=== PATIENT | male | born 1930 | race Caucasian/White ===

== ENCOUNTER 2018-02-05 08:30 | Observation (INO) | payer OTHER ==
--- NOTE | 2018-02-05 08:45 | EDPHY ---
H & P Stated Complaint: SOB Time Seen by Provider: 02/05/18 08:44 - Medical/Surgical History Hx Asthma: Yes Hx Chronic Respiratory Disease: No Hx Diabetes: No Hx Cardiac Disease: Yes Hx Renal Disease: No Hx Cirrhosis: No Hx Alcoholism: No Other PMH: a-fib, asthma, - Social History Smoking Status: Former smoker Constitutional: Initial Vital Signs Temperature (C) 36.7 C 02/05/18 08:33 Heart Rate 133 H 02/05/18 08:33 Respiratory Rate 24 H 02/05/18 08:33 Blood Pressure 156/105 H 02/05/18 08:33 O2 Sat (%) 91 L 02/05/18 08:33 O2 Delivery Mode Nasal Cannula O2 (L/minute) 2 Allergies/Adverse Reactions: No Known Allergies Allergy (Verified 02/05/18 08:32) Home Medications: Medication Instructions Recorded Diazepam [Valium 2 MG (*)] 2 mg PO BID PRN #7 tab 01/01/18 Diltiazem 01/01/18 Dulera 200 Mcg/5 Mcg Inhaler 01/01/18 Pradaxa 01/01/18 Proair Hfa 02/05/18 Medical Decision Making - Diagnostics Imaging Results: Imaging Impressions Chest X-Ray 02/05/18 08:43 Impression: 1. No active cardiopulmonary disease seen. 2. Possible hiatal hernia. Chest/Thorax CTA 02/05/18 09:22 Impression: 1. No evidence of pulmonary embolus using CT protocol. 2. Focal band of scarring left lower lobe posterior laterally and inferior right upper lobe anterolaterally. 3. Tortuosity of the descending thoracic aorta with scattered arterial sclerotic calcifications. Arteriosclerotic vascular calcifications are also seen of the proximal to mid LAD. 4. Small hiatal hernia. 5. Hyperexpanded lungs suggestive of underlying COPD. Findings discussed with Dakota Nguyen MD at 10:51 hour, 02/05/2018. Imaging: Discussed imaging studies w/ on call Radiologist, I viewed and interpreted images myself ED Course/Re-evaluation: CHIEF COMPLAINT: Shortness of breath HISTORY OF PRESENT ILLNESS: The patient is an anticoagulated (Pradaxa) 87 y/o male with a history of atrial- fibrillation and COPD complaining of shortness of breath. Several months ago the patient developed a chest cold and has continued to have a cough and some shortness of breath since. He has also had more frequent episode of atrial- fibrillation since the chest cold began. He is scheduled to see a electric detector operator next week regarding this cough. [place] and became acutely short of breath. As the shortness of breath has not improved, the patient decided to present to the emergency department today. Denies headache, neck pain, abdominal pain, urinary or bowel complaints, numbness, paresthesias, fever. REVIEW OF SYSTEMS: A comprehensive 10 system review of systems is otherwise negative aside from the elements mentioned in the history of present illness and medical decision making. PHYSICAL EXAM: HR, BP, O2 Sat, RR. Temp noted General Appearance: Alert, well hydrated, appropriate. Head: Atraumatic without scalp tenderness or obvious injury Eyes: Pupils equal, round, reactive to light and accommodation, EOMI, no trauma , no injection. Ears: Clear bilaterally, no perforation, normal landmarks Nose: Atraumatic, no rhinorrhea, clear. Throat: There is no erythema or exudates, no lesions, normal tonsils, mucus membranes moist. Neck: Supple, nontender, no lymphadenopathy. Respiratory: Tachypneic with retractions, accessory muscle use, and distress. Diffuse bilateral end expiratory wheezes with decreased breath sounds in the bases, left greater than right. Cardiovascular: Regular rate and rhythm, no murmurs, rubs, or gallops. Bilateral carotid, radial, dorsalis pedis, and posterior tibial pulses intact. Good capillary refill all extremities. Gastrointestinal: Abdomen is soft, nontender, non-distended, no masses, no rebound, no guarding, no peritoneal signs. Musculoskeletal: Normal active ROM of all extremities, atraumatic. Neurological: Alert, appropriate, and interactive. The patient has normal DTRs and non-focal cranial nerves, motor, sensory, and cerebellar exam. Skin: No rashes, good turgor, no nodules on palpation. Past medical history: Atrial-fibrillation, asthma, COPD Past surgical history: Denies Family history: Denies Social history: Family at bedside, former smoker, lives in [place] DIAGNOSTICS/PROCEDURES/CRITICAL CARE TIME: EKG: The 12 lead EKG was interpreted by myself as atrial fibrillation with a rapid V-rate, probable old anteroseptal infarct. See hard copy and/or "tracemaster" electronic copy for interpretation. Chest X-ray: No acute findings Chest CTA: No acute findings. No signs of pneumonia or PE. Critical care time spent by me, Dr. Nguyen, exclusively with this patient was 30 minutes, exclusive of PA time and exclusive of procedures. The organ system at risk was cardiopulmonary and I gave IVF, Ceftriaxone and Zithromax, Diltiazem and transferred to the patient to the floor to prevent worsening of the patients condition. DIFFERENTIAL DIAGNOSIS: The differential diagnosis for the patient's shortness of breath and hypoxemia included but was not limited to COPD exacerbation, paroxysmal atrial fibrillation, pneumonia, myocardial infarction, acute mountain sickness, high altitude pulmonary edema, congestive heart failure, and pulmonary embolus. MEDICAL DECISION MAKING: The patient is an anticoagulated (Pradaxa) 87 y/o male with a history of atrial- fibrillation and COPD presenting with shortness of breath, onset yesterday after going to the mountains. On exam the patient is tachypneic with retractions , accessory muscle use, and distress. He has diffuse bilateral end expiratory wheezes with decreased breath sounds in the bases, left greater than right. The patient is also tachycardic. Labs, chest x-ray, and EKG ordered; 20mg IV Diltiazem bolus with 20mg/hr Diltiazem drip, DuoNeb, and 125mg IV Solu-Medrol administered. 0846: I reassessed patient and reviewed patient's EKG which reveals tachycardia in an atrial fibrillation or multiple focal tachycardia. 0855: I reviewed patient's chest x-ray with no obvious sign of pneumonia. 0904: I reassessed patient, he is still tachycardic due to a-fib, not sepsis. Patients troponin is negative and he has a normal ABG. 0913: Patient's labs reveal a WBC with a left shift. 0919: 1gm IV Ceftriaxone, Zithromax drip, and 500mL IV NS administered 0921: Chest CTA ordered; patient' has pre-renal dehydration, 1L IV NS administered. 0933: Reassessed patient and discussed laboratory and x-ray findings. I have discussed having a chest CTA for further evaluation, which he is comfortable with. I have also discussed plan for admission, which he is comfortable with. 1025: Patient's heart rate is between 88-120 and his BP is 95/78; chest CTA still pending. 1052: I spoke with Dr. Krause, radiologist, who reports there are no acute findings on the chest CTA. The patient's labs reveal a BNP of 2,000; 20mg IV Lasix administered for his acute CHF exacerbation. Patient's symptoms are due to paroxysmal atrial fibrillation and a COPD exacerbation. This patient's symptoms are improving since first presenting in the emergency department. 1057: I consulted with hospitalist service, Dr. Alcala accepts admission of this patient. 1105: Reassessed patient and discussed CTA findings. He continues to feel better and is now able to walk around. Patient is safe to be transferred to the floor. - Data Points Laboratory Results: Laboratory Results 02/05/18 09:00 02/05/18 08:50 02/05/18 02/05/18 02/05/18 09:00 08:54 08:50 WBC 16.34 10^3/uL H 10^3/uL (3.80-9.50) RBC 4.93 10^6/uL 10^6/uL (4.40-6.38) Hgb 16.0 g/dL g/dL (13.7-17.5) Hct 45.6 % % (40.0-51.0) MCV 92.5 fL fL (81.5-99.8) MCH 32.5 pg pg (27.9-34.1) MCHC 35.1 g/dL g/dL (32.4-36.7) RDW 13.6 % % (11.5-15.2) Plt Count 216 10^3/uL 10^3/uL (150-400) MPV 8.8 fL fL (8.7-11.7) Neut % (Auto) 90.4 % H % (39.3-74.2) Lymph % (Auto) 2.1 % L % (15.0-45.0) Barren % (Auto) 6.0 % % (4.5-13.0) Eos % (Auto) 0.7 % % (0.6-7.6) Baso % (Auto) 0.2 % L % (0.3-1.7) Nucleat RBC Rel Count 0.0 % % (0.0-0.2) Absolute Neuts (auto) 14.76 10^3/uL H 10^3/uL (1.70-6.50) Absolute Lymphs (auto) 0.35 10^3/uL L 10^3/uL (1.00-3.00) Absolute Monos (auto) 0.98 10^3/uL H 10^3/uL (0.30-0.80) Absolute Eos (auto) 0.12 10^3/uL 10^3/uL (0.03-0.40) Absolute Basos (auto) 0.03 10^3/uL 10^3/uL (0.02-0.10) Absolute Nucleated RBC 0.00 10^3/uL 10^3/uL (0-0.01) Immature Gran % 0.6 % % (0.0-1.1) Seg Neutrophils % 97.0 % % Band Neutrophils % 0.0 % % Lymphocytes % 1.0 % % Monocytes % 1.0 % % Eosinophils % 1.0 % % Basophils % 0.0 % % Metamyelocytes % 0.0 % % Myelocytes % 0.0 % % Promyelocytes % 0.0 % % Blast Cells % 0.0 % % Immature Gran # 0.10 10^3/uL 10^3/uL (0.00-0.10) Absolute Seg Neuts 15.85 10^/uL H 10^/uL (1.70-6.50) Absolute Band Neuts 0.00 10^3/uL 10^3/uL (0.00-0.70) Absolute Lymphocytes 0.16 10^3/uL L 10^3/uL (1.00-3.00) Absolute Monocytes 0.16 10^3/uL L 10^3/uL (0.30-0.80) Absolute Eosinophils 0.16 10^3/uL 10^3/uL (0.03-0.40) Absolute Basophils 0.00 10^3/uL L 10^3/uL (0.02-0.10) Absolute Metamyelocyte 0.00 10^3/mL 10^3/mL (0.00-0.00) Absolute Myelocytes 0.00 10^3/mL 10^3/mL (0.00-0.00) Absolute Promyelocytes 0.00 10^3/uL 10^3/uL (0.00-0.00) Absolute Plasma Cells 0.00 10^3/uL 10^3/uL (0.00-0.00) Nucleated RBCs 0 /100 WBC /100 WBC (0-0) Absolute Blast Cells 0.00 10^3/uL 10^3/uL (0.00-0.00) Plasma Cells % 0.0 % % Platelet Estimate ADEQUATE (ADEQ) PT INR APTT VBG Lactic Acid 1.5 mmol/L mmol/L (0.7-2.1) Sodium Potassium Chloride Carbon Dioxide Anion Gap BUN Creatinine Estimated GFR Glucose Calcium Magnesium Total Bilirubin POC Troponin I 0.01 ng/mL ng/mL (0.00-0.08) NT-Pro-B Natriuret Pep 02/05/18 02/05/18 08:50 08:50 WBC RBC Hgb Hct MCV MCH MCHC RDW Plt Count MPV Neut % (Auto) Lymph % (Auto) Barren % (Auto) Eos % (Auto) Baso % (Auto) Nucleat RBC Rel Count Absolute Neuts (auto) Absolute Lymphs (auto) Absolute Monos (auto) Absolute Eos (auto) Absolute Basos (auto) Absolute Nucleated RBC Immature Gran % Seg Neutrophils % Band Neutrophils % Lymphocytes % Monocytes % Eosinophils % Basophils % Metamyelocytes % Myelocytes % Promyelocytes % Blast Cells % Immature Gran # Absolute Seg Neuts Absolute Band Neuts Absolute Lymphocytes Absolute Monocytes Absolute Eosinophils Absolute Basophils Absolute Metamyelocyte Absolute Myelocytes Absolute Promyelocytes Absolute Plasma Cells Nucleated RBCs Absolute Blast Cells Plasma Cells % Platelet Estimate PT 16.1 SEC H SEC (12.0-15.0) INR 1.27 H (0.83-1.16) APTT 37.5 SEC SEC (23.0-38.0) VBG Lactic Acid Sodium 137 mEq/L mEq/L (135-145) Potassium 4.1 mEq/L mEq/L (3.3-5.0) Chloride 105 mEq/L mEq/L (97-110) Carbon Dioxide 26 mEq/l mEq/l (22-31) Anion Gap 6 mEq/L L mEq/L (8-16) BUN 28 mg/dL H mg/dL (7-23) Creatinine 1.1 mg/dL mg/dL (0.7-1.3) Estimated GFR > 60 Glucose 95 mg/dL mg/dL (70-100) Calcium 9.0 mg/dL mg/dL (8.5-10.4) Magnesium 1.9 mg/dL mg/dL (1.6-2.3) Total Bilirubin 1.6 mg/dL H mg/dL (0.1-1.4) POC Troponin I NT-Pro-B Natriuret Pep 1960 pg/mL H pg/mL (0-450) Microbiology Results: MICROBIOLOGY 02/05/18 09:35 Nasal, Sinus - Swab Respiratory Panel (PCR) - Final Human Rhinovirus/Enterovirus Medications Given: Discontinued Medications Albuterol/Ipratropium (Duoneb) 3 ml IH EDNOW ONE Stop: 02/05/18 08:49 Last Admin: 02/05/18 08:58 Dose: 3 ml Diltiazem HCl (Cardizem 25 Mg/5 Ml Vial) 20 mg IVP EDNOW ONE Stop: 02/05/18 08:50 Last Admin: 02/05/18 08:57 Dose: 20 mg Diltiazem HCl 125 mg/ Dextrose 125 mls @ 0 mls/hr IV EDNOW ONE; As Directed PRN Reason: Protocol Stop: 02/05/18 08:50 Last Admin: 02/05/18 09:39 Dose: 125 mls Azithromycin 500 mg/ Sodium (Chloride) 255 mls @ 255 mls/hr IV EDNOW ONE PRN Reason: Protocol Stop: 02/05/18 10:19 Last Admin: 02/05/18 09:53 Dose: 255 mls Ceftriaxone Sodium/Dextrose (Rocephin 1 Gm (Premix)) 50 mls @ 100 mls/hr IV EDNOW ONE PRN Reason: Protocol Stop: 02/05/18 09:49 Last Admin: 02/05/18 09:27 Dose: 50 mls Sodium Chloride (Ns) 500 mls @ 1,000 mls/hr IV EDNOW ONE PRN Reason: Protocol Stop: 02/05/18 09:50 Last Admin: 02/05/18 09:29 Dose: 500 mls Diltiazem/Dextrose (Diltiazem 125mg/125ml (Premix)) 125 mls @ 0 mls/hr IV EDNOW ONE; As Directed PRN Reason: Protocol Stop: 02/05/18 09:31 Last Admin: 02/05/18 09:34 Dose: 125 mls Methylprednisolone Sodium Succinate (Solu-Medrol) 125 mg IVP EDNOW ONE Stop: 02/05/18 08:54 Last Admin: 02/05/18 08:57 Dose: 125 mg Point of Care Test Results: Chemistry 02/05/18 08:54 POC Troponin I 0.01 ng/mL ng/mL (0.00-0.08) Departure - Departure Disposition: [facility] Inpatient Acute Clinical Impression: Hypoxemia, Chronic obstructive pulmonary disease with acute exacerbation A-fib Qualifiers: Atrial fibrillation type: paroxysmal Qualified Code(s): I48.0 - Paroxysmal atrial fibrillation CHF exacerbation Qualifiers: Heart failure type: unspecified Qualified Code(s): I50.9 - Heart failure, unspecified Condition: Fair Referrals: GREER CHAND [Primary Care Provider] - As per Instructions Report Scribed for: Dakota Nguyen Report Scribed by: Daphne Granda Date of Report: 02/05/18 Time of Report: 08:45
[2018-02-05] MEDS ORDERED: IPRATROPIUM/ALBUTEROL 3 ML DEYVIAL IH ONE (08:48)
[2018-02-05] MEDS ORDERED: DILTIAZEM 25 MG/5 ML VIAL IVP ONE ×2 (08:49→09:01)
[2018-02-05] MEDS ORDERED: DILTIAZEM 125 MG in D5W 125 ML IV ONE (08:49)
[2018-02-05] MEDS ORDERED: methylPREDNISolone SOD SUCC 125 MG/2 ML VIAL IVP ONE (08:53)
[2018-02-05] MEDS ORDERED: methylPREDNISolone SOD SUCC 125 MG/2 ML VIAL ONE (08:54)
[2018-02-05 09:11] LABS: INR 1.27 (0.83-1.16); PROTIME(PATIENT) 16.1 SEC (12.0-15.0)
[2018-02-05 09:12] LABS: PLATELET COUNT 216 10^3/uL (150-400)
[2018-02-05] MEDS ORDERED: AZITHROMYCIN IV 500 MG in NS 250 ML IV ONE (09:20)
[2018-02-05] MEDS ORDERED: NS 500 ML IV ONE (09:21)
[2018-02-05] MEDS ORDERED: DILTIAZEM HCL/D5W 125 ML IV ONE (09:30)
[2018-02-05] MEDS ORDERED: IOPAMIDOL (ISOVUE 370) 100 ML BTL IV ONE (09:39)
[2018-02-05] MEDS ORDERED: FUROSEMIDE 20 MG/2 ML VIAL IVP ONE (10:54)
[2018-02-05] MEDS ORDERED: ONDANSETRON DISINTEGRATING 4 MG TAB PO PRN (11:52)
[2018-02-05] MEDS ORDERED: ACETAMINOPHEN 325 MG TAB PO PRN (11:52)
[2018-02-05] MEDS ORDERED: ONDANSETRON 4 MG/2 ML VIAL IVP PRN (11:52)
[2018-02-05] MEDS ORDERED: ALBUTEROL 3 ML DEYVIAL IH PRN (11:52)
[2018-02-05] MEDS ORDERED: BENZONATATE 100 MG CAP PO PRN (12:05)
--- NOTE | 2018-02-05 12:32 | GHP ---
DATE OF ADMISSION: 02/05/2018 HISTORY OF PRESENT ILLNESS: The patient is a pleasant 87-year-old gentleman with history of atrial f ibrillation and COPD versus asthma, who presents with increased work of breathing. He states that he has felt poorly since January 18. What he describes is what sounds like a series of viral infectio ns followed by persistent cough. He hiked 3 miles at 10,000 feet yesterday and said he felt a little bit short of breath which was unusual for him in that he is a relatively spry 87-year-old. He denies heart failure symptoms recently, such as PND, orthopnea, or lower extremity edema, although he did have lower extremity edema in July when his atrial fibrillation became what appears to be pe rmanent. He has had fever. He had some chills this morning, cough productive of clear sputum. He has also garcia d some palpitations. Notably, his heart rate was in the 130s on arrival to the emergency department. REVIEW OF SYSTEMS: Complete 10-point review of systems conducted, negative except as noted in the HP I. PAST MEDICAL HISTORY: Atrial fibrillation, COPD versus asthma. ALLERGIES: No known drug allergies. HOME MEDICATIONS: Albuterol, prednisone which is part of a taper. He is currently on 10. Dabigatra n, diltiazem which he took this morning, fluticasone/salmeterol. SOCIAL HISTORY: Lives independently between [place] and [place]. Has a beer daily. He had abstain ed when his atrial fibrillation was paroxysmal. 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 He smoked 70 years ago. FAMILY HISTORY: Parents . PHYSICAL EXAM: PRESENTING VITALS: Temp 36.7, blood pressure 156/105, pulse 133. Breathing 24 times a minute, 91% on room air. Now breathing 20 times a minute, 96 on 2 L. GENERAL: No acute distress . Increased work of breathing. HEENT: Sclerae anicteric. Oropharynx clear. Mucous membranes are moist. NECK: Supple. No lymphadenopathy or JVD. LUNGS: Scattered rhonchi. There is good air mov ement. He is tachypneic. HEART: S1, S2 and tachycardic. It is irregular. ABDOMEN: Soft, nontend er, nondistended. LOWER EXTREMITIES: Some chronic venous stasis changes without edema. SKIN: With out rash. NEUROLOGIC: Exam is nonfocal. LABS: White count 16.4, hematocrit 45, platelets are 216,000. INR is 1.3. Venous lactate is 1.5. Sodium 137, potassium 4.1, chloride 105, bicarb 26, BUN 28, creatinine 1.1, glucose 95. Bilirubin is 1.6. BNP is 1960 with no prior for comparison. Troponin is negative. EKG interpreted by me shows AFib at 150 with normal axis and intervals. There are no ST or T-wave ch anges. Chest x-ray interpreted by me shows no acute cardiopulmonary disease. CTA of the chest shows no pulmonary embolism. Focal band of scarring in the left lower lobe posterio rly, inferior right upper lobe anterolaterally. Tortuosity of the descending thoracic aorta. Hypere xpanded lungs. I have discussed the case with Dr. Dakota Nguyen. Respiratory panel positive for rhinovirus/enterovirus. ASSESSMENT/PLAN: 87-year-old gentleman here with increased work of breathing, viral infection, rapid atrial fibrillation. 1. Atrial fibrillation. He has chronic atrial fibrillation that is now rapid. He took his diltiaze m this morning. He has slowed down. We will follow him on telemetry and hold off on diltiazem drip. 2. Increased work of breathing. The patient has acute viral infection. We will give him Solu-Medro l today as well as scheduled Soo, Trever, and p.r.nVelai Aleman. 3. Tortuous aorta. We will follow. 4. Question sepsis. This patient does not have sepsis. DISPOSITION: Observation status. /[id number]/MODL
[2018-02-05] MEDS ORDERED: DILTIAZEM 125 MG in D5W 125 ML IV SCH (14:15)
[2018-02-05] MEDS: methylPREDNISolone SOD SUCC 40 MG/ML VIAL IVP SCH ×3 (14:28→22:55)
[2018-02-05] MEDS: guaiFENesin 600 MG TAB.ER PO SCH ×2 (14:35→21:40)
--- NOTE | 2018-02-05 15:00 | CPEKG ---
Test Reason : OPEN Blood Pressure : / mmHG Vent. Rate : 153 BPM Atrial Rate : 207 BPM P-R Int : 098 ms QRS Dur : 075 ms QT Int : 275 ms P-R-T Axes : 000 027 000 degrees QTc Int : 439 ms Atrial fibrillation with rapid V-rate Probable anteroseptal infarct, old Repolarization abnormality, prob rate related Confirmed by Dakota Nguyen ([id number]) on 02/05/2018 2:59:32 PM Referred By: Confirmed By:Dakota Nguyen
--- NOTE | 2018-02-05 15:29 | ASMTCMCOM ---
CM Note CM Note Notes: CM met with Pt and reviewed chart for D/C planning. Pt is an 86 y/o male who presented to the ED with a hx of COPD vs asthma and AF and current SOB. He was hiking when the SOB began. He has felt somewhat ill since 01/18 with what he believes have been a series of viral infections. Pt is physically active and lives independently. His children live nearby and are at bedside. No CM needs have been identified. CM will follow. D/C Plan: Anticipate independent. Date Signed: 02/05/2018 03:28 PM Electronically Signed By:Miroslava Rizo
[2018-02-05] MEDS: IPRATROPIUM/ALBUTEROL 3 ML DEYVIAL IH SCH ×3 (15:46→20:49)
[2018-02-05] MEDS: FLUTICASONE/SALMETER 100/50MCG DISKUS IH SCH (20:49)
[2018-02-05] MEDS: DABIGATRAN ETEXILATE MESYL 150 MG CAP PO SCH (21:40)
[2018-02-06] MEDS: methylPREDNISolone SOD SUCC 40 MG/ML VIAL IVP SCH ×2 (04:15→14:28)
[2018-02-06] MEDS: IPRATROPIUM/ALBUTEROL 3 ML DEYVIAL IH SCH ×2 (05:03→13:42)
[2018-02-06] MEDS: guaiFENesin 600 MG TAB.ER PO SCH (08:06)
[2018-02-06] MEDS: DABIGATRAN ETEXILATE MESYL 150 MG CAP PO SCH (08:09)
[2018-02-06] MEDS ORDERED: DILTIAZEM XR 240 MG CAP PO SCH (09:00)
[2018-02-06] MEDS: FLUTICASONE/SALMETER 100/50MCG DISKUS IH SCH (09:00)
[2018-02-06] MEDS ORDERED: DILTIAZEM CD 120 MG CAP PO SCH ×2 (09:00→09:15)
[2018-02-06 13:18] VITALS: BP 116/87
--- NOTE | 2018-02-06 15:01 | HOSPPROG ---
Hospitalist Progress Note Assessment/Plan: 87 yo M w AF, rhinovirus infection home today see dc summary Subjective: very anxious for dc. states HR alwaya elevated. declines offer to stay for further attempts at rate control Objective: Vital Signs Temp Pulse Resp BP Pulse Ox 36.3 C 124 H 20 116/87 H 95 02/06/18 12:00 02/06/18 12:00 02/06/18 12:00 02/06/18 12:00 02/06/18 12:00 Laboratory Results 02/06/18 04:12 02/05/18 02/06/18 02/07/18 05:59 05:59 05:59 Intake Total 851 Output Total 1600 Balance -749 PT 16.1 SEC (12.0-15.0) H 02/05/18 08:50 INR 1.27 (0.83-1.16) H 02/05/18 08:50 - Physical Exam Constitutional: no apparent distress, appears nourished Eyes: PERRL, anicteric sclera Ears, Nose, Mouth, Throat: moist mucous membranes, hearing normal Cardiovascular: irregularly irregular, tachycardia Respiratory: other (normal lung exam. improved from yesterday) Gastrointestinal: normoactive bowel sounds, soft, non-tender abdomen Genitourinary: no bladder fullness, No gonzalez in urethra Skin: warm, normal color Musculoskeletal: full muscle strength, no muscle tenderness Neurologic: AAOx3 ICD10 Worksheet Patient Problems: Problems Problem Status Onset A-fib Acute CHF exacerbation Acute Chronic obstructive pulmonary disease with acute exacerbation Acute Hypoxemia Acute
--- NOTE | 2018-02-06 15:27 | GDS ---
DISCHARGE DIAGNOSES: 1. Atrial fibrillation with imperfectly controlled rate. 2. Acute hypoxemic respiratory failure, now resolved. 3. Rhinovirus infection with bronchospasm. HOSPITAL COURSE: Please see admission History and Physical by Dr. Josias Alcala. The patient prese nted with increased work of breathing. He had a chest x-ray with no evidence of pneumonia. CT with no evidence of pulmonary embolism. He was treated with steroids. Respiratory viral panel was positi ve for rhinovirus. The patient had poorly controlled atrial fibrillation with a rate in the 120s. He states this is whe re he always is and despite repeated discussions was disinterested in staying for further management. I did advise him to take additional diltiazem for the next 3 days and follow up with his Cardiologi st at his is soonest convenience. /[id number]/MODL
== END 2018-02-06 16:05 | disposition home or self-care (01) ==
LOC: F2W 12:30
PROVIDERS: ADMIT Internal Medicine; ATTEND Internal Medicine
DX: I48.0 Paroxysmal atrial fibrillation (principal); J96.01 Acute respiratory failure with hypoxia; J98.01 Acute bronchospasm; B97.89 Other viral agents as the cause of diseases classified elsewhere; Z87.891 Personal history of nicotine dependence; Z79.01 Long term (current) use of anticoagulants
CPT/HCPCS: 71045; 71275; 93005; 96361; 96365; 96375; 96376; 99291; G0378; J0456; J0696; J1940; J2920; J2930; Q9967; 84484-PO

== ENCOUNTER 2018-02-09 12:41 | Inpatient (IN) | payer OTHER ==
[2018-02-09] MEDS ORDERED: IBUPROFEN 600 MG TAB PO ONE ×2 (13:37→13:38)
[2018-02-09 13:38] LABS: PLATELET COUNT 165 10^3/uL (150-400)
[2018-02-09] MEDS ORDERED: ALBUTEROL 3 ML DEYVIAL IH ONE (13:38)
[2018-02-09] MEDS ORDERED: NS 1,000 ML IV ONE (13:38)
[2018-02-09] MEDS ORDERED: ACETAMINOPHEN 325 MG TAB PO ONE (13:39)
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
[2018-02-09 13:47] LABS: INR 1.22 (0.83-1.16); PROTIME(PATIENT) 15.6 SEC (12.0-15.0)
--- NOTE | 2018-02-09 14:28 | CPEKG ---
Test Reason : OPEN Blood Pressure : / mmHG Vent. Rate : 136 BPM Atrial Rate : 133 BPM P-R Int : 094 ms QRS Dur : 076 ms QT Int : 296 ms P-R-T Axes : 000 051 057 degrees QTc Int : 446 ms Atrial fibrillation with rapid V-rate Anterior infarct, old Confirmed by Bianca Linares ([id number]) on 02/09/2018 2:28:31 PM Referred By: Confirmed By:Bianca Linares
[2018-02-09] MEDS ORDERED: methylPREDNISolone SOD SUCC 125 MG/2 ML VIAL IVP ONE (15:05)
[2018-02-09] MEDS ORDERED: AZITHROMYCIN IV 500 MG in NS 250 ML IV ONE (15:05)
[2018-02-09] MEDS ORDERED: ONDANSETRON DISINTEGRATING 4 MG TAB PO PRN (16:35)
[2018-02-09] MEDS ORDERED: ONDANSETRON 4 MG/2 ML VIAL IVP PRN (16:35)
[2018-02-09] MEDS ORDERED: NS 1,000 ML IV SCH (16:45)
--- NOTE | 2018-02-09 17:43 | GHP ---
DATE OF ADMISSION: 02/09/2018 HISTORY OF PRESENT ILLNESS: The patient is a pleasant 87-year-old gentleman who has atrial fibrillat ion with poor rate control, as well as a recent viral illness. [facility] He was discharged on the first hospital day despite poor control of hi s rate because of his insistence. He returns with fever and cough. During the time of his last admission, he had a nasal swab positive for rhinovirus. He had no evidence of infiltrate on the chest film and a negative CT-A of the chest . There was some scarring seen his parenchyma. He returns today with ongoing cough. He had a fever when he woke up this morning, coughing up clear sputum. He has been taking the diltiazem twice mart y at 120, instead of , which he states it improved rate control. Notably, his watch was re ading 70 when the telemetry was reading 120 during his last admission. He has been eating and drinki ng well. He denies urgency, frequency, dysuria, abdominal pain, rash on his skin, swelling in his grant ints, sore throat. He says he occasionally coughs with eating. REVIEW OF SYSTEMS: Complete 10-point review of systems conducted, negative, except as noted in the H PI. 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 HOME MEDICATIONS: Albuterol, prednisone taper, dabigatran, diltiazem, fluticasone, salmeterol. SOCIAL HISTORY: Lives independently between [place] and [place]. He has beer daily. 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 Smoked 70 years ago. FAMILY HISTORY: Parents . PHYSICAL EXAM: VITAL SIGNS: Presenting today: Afebrile at 37.1, blood pressure 118/78, pulse 114, breathing 26 times a minute, 97% on 3 L. GENERAL: In no acute distress. HEENT: Sclerae anicteric. Oropharynx clear. Mucous membranes are moist. NECK: Supple without lymphadenopathy. There is no JVD. LUNGS: Good air movement without significant wheezes. There are no areas of focal decreased breath sounds. HEART: S1, S2 without murmurs. ABDOMEN: Soft, nontender, nondistended. LOWER EXTR EMITIES: Some chronic venous stasis change, but otherwise, no edema. LABORATORY/IMAGING: Sodium 133, potassium 4.0, chloride 99, bicarb 28, BUN 27, creatinine 0.9, gluco se 93. Bilirubin is 2.3. During his last admission, his BNP was elevated at 1960. Chest x-ray today shows no pneumonia with large lung volumes. EKG interpreted by me shows atrial fibrillation at 136 with normal axis and intervals. No ST or T-wa ve changes. I discussed the case Dr. Lissette Linares, Dr. Giovanni Esteban. ASSESSMENT/PLAN: An 87-year-old gentleman with representation with fever and cough. 1. Fever, cough. I do not think this represents a pneumonia. He had a recent panel showing Rhinovi christine. He is not currently wheezing. The low-grade temperature is noted. He had a CT during his last admission for similar presentation showing no infiltrates, so we are not going to repeat that now. I think is reasonable to give him steroids, nebulizers, and Tessalon Perles. I am also going to [facility] see him as he may be having some aspiration events contributing to cough additionally. We will proceed with Pulmonary consult for further evaluation. It is not clear that he needs bronchosc opy at this point in time. 2. Atrial fibrillation . Every time I have seen him, his rate has never been lower than 1 00. He does not have heart failure on the basis of jugular venous distention. I do note the elevate d BNP. I am going to go ahead and continue his diltiazem at twice daily and given 2 doses of digoxin today and 1 tomorrow. Will follow him on telemetry. 3. History of atrial myxoma, unclear contribution to current presentation. I will perform an echoca rdiogram. 4. Prophylaxis. He is therapeutically anticoagulated with Pradaxa. DISPOSITION: Inpatient status. /[id number]/MODL
[2018-02-09] MEDS ORDERED: ALBUTEROL 60 PUFFS/8 GM MDI IH PRN (18:15)
[2018-02-09] MEDS: predniSONE 20 MG TAB PO SCH (18:26)
[2018-02-09] MEDS ORDERED: DIGOXIN 250 MCG TAB PO ONE (18:30)
[2018-02-09] MEDS: BENZONATATE 100 MG CAP PO SCH ×2 (18:34→20:40)
[2018-02-09] MEDS: IPRATROPIUM/ALBUTEROL 3 ML DEYVIAL IH SCH ×2 (19:30→20:28)
[2018-02-09] MEDS: FLUTICASONE/SALMETER 100/50MCG DISKUS IH SCH (20:27)
[2018-02-09] MEDS: DABIGATRAN ETEXILATE MESYL 150 MG CAP PO SCH (20:39)
[2018-02-09] MEDS: DILTIAZEM CD 120 MG CAP PO SCH (20:40)
[2018-02-09] MEDS ORDERED: DILTIAZEM CD 120 MG CAP PO SCH (21:00)
[2018-02-09] MEDS ORDERED: FLUTICASONE/SALMETER 100/50MCG DISKUS IH SCH (21:00)
[2018-02-09] MEDS ORDERED: DIGOXIN 125 MCG TAB PO ONE (22:30)
[2018-02-10 05:00] LABS: PLATELET COUNT 134 10^3/uL (150-400)
[2018-02-10] MEDS: IPRATROPIUM/ALBUTEROL 3 ML DEYVIAL IH SCH ×3 (05:27→16:16)
[2018-02-10] MEDS: DABIGATRAN ETEXILATE MESYL 150 MG CAP PO SCH ×2 (08:39→21:13)
[2018-02-10] MEDS: CHOLECALCIFEROL VIT D3 1,000 UNITS TAB PO SCH (08:39)
[2018-02-10] MEDS: CYANO/VITAMIN B12 1000 MCG TAB PO SCH (08:40)
[2018-02-10] MEDS: DILTIAZEM CD 120 MG CAP PO SCH ×2 (08:40→21:14)
[2018-02-10] MEDS: BENZONATATE 100 MG CAP PO SCH ×3 (08:42→21:13)
[2018-02-10] MEDS: DIGOXIN 125 MCG TAB PO SCH (09:27)
[2018-02-10] MEDS: FLUTICASONE/SALMETER 100/50MCG DISKUS IH SCH ×2 (09:43→21:38)
[2018-02-10] MEDS: predniSONE 20 MG TAB PO SCH (10:11)
--- NOTE | 2018-02-10 11:41 | PDMN ---
Medical Necessity Medical necessity: Pt meets inpt criteria per MD order and [facility] M-505, Atrial Fibrillation. 87 y/o admitted w/afib w/RVR, viral illness w/cough and fever, recent hospital admission dc'd 02/06/18. HR in 120's on admission, tachycardia persists w/ HR 120's-160's this AM, tachypneic. ECHO pending, blood cultures pending, cardiology and pulmonology consults pending. Anticipate >2MN for further workup and treatment.
--- NOTE | 2018-02-10 12:07 | ASMTCASEMG ---
Living Arrangements What is your living Answers: Alone arrangement? Who do you live with? Type Of Residence What kind of residence do Answers: House you live in? Discharge Plan Comments Coordination Status Comments Notes: Pts case discussed in tx rounds. Pt is a 87 y/o man admitted for afib w/ rvr and pneumonia. Pt is on droplet precaution. SPL has been ordered. Pt is being followed by transitional care. Cardiology and pulmonology has been consulted. Pt is refusing to use o2 at this time. Needs are TBD. CM to follow. Plan: TBD Date Signed: 02/10/2018 12:07 PM Electronically Signed By:DEAN Jones
--- NOTE | 2018-02-10 14:59 | HOSPPROG ---
Hospitalist Progress Note Assessment/Plan: 87 yo M with hx of a fib and recent viral illness presenting with a fib w/rvr, as well as fever and cough # fever/cough: with prolonged bout of respiratory issues of uncertain etiology, recent CT scan unremarkable and having very poor air movement currently c/w COPD exacerbation. Pulmonary has been consulted, patient concerned he may have black mold exposure from his house. # a fib w/rvr: noted to have rapid a fib on his usual dilt, started on dig last night without much improvement today, continued on pradaxa, cardiology consulted. Echo performed today with report pending. 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 Hyperexpanded lungs noted on imaging and poor air movement as above. Started on steroids, BD's, pulmonary consulted # IP status will need > 48 hours stay for eval/mgmt of above Patient new to my care. old records reviewed and summarized as above. Subjective: no significant overnight events, patient currently feeling sob, no pain Objective: Vital Signs Temp Pulse Resp BP Pulse Ox 36.7 C 109 H 27 H 113/81 H 96 02/10/18 12:03 02/10/18 12:03 02/10/18 12:03 02/10/18 12:03 02/10/18 12:03 Laboratory Results 02/10/18 03:48 02/10/18 03:48 02/09/18 02/10/18 02/11/18 05:59 05:59 05:59 Intake Total 1300 Output Total 1150 475 Balance 150 -475 PT 15.6 SEC (12.0-15.0) H 02/09/18 13:26 INR 1.22 (0.83-1.16) H 02/09/18 13:26 awake alert anicteric op clear rrr no mrg dec bs throughout soft nt nd no cce warm dry well perfused oriented appropriate ICD10 Worksheet Patient Problems: Problems Problem Status Onset Atrial fibrillation with RVR Acute Pneumonia Acute A-fib Acute CHF exacerbation Acute Chronic obstructive pulmonary disease with acute exacerbation Acute Hypoxemia Acute
--- NOTE | 2018-02-10 15:02 | PDCARPN ---
Cardiology Progress Note Assessment/Plan: Assessment: Please see dictated Cardiology consultation. 02/10/18 15:01 Objective: Vital Signs (8 Hrs) Temp Pulse Resp BP Pulse Ox 02/10/18 12:03 36.7 C 109 H 27 H 113/81 H 96 02/10/18 09:45 129 H 29 H 95 02/10/18 09:31 155 H 31 H 105/80 96 02/10/18 08:24 165 H 15 115/88 H 94 02/10/18 07:44 36.9 C 143 H 24 H 86/74 L 95 Intake/Output (24 Hrs) 02/09/18 02/10/18 02/11/18 05:59 05:59 05:59 Intake Total 1300 Output Total 1150 475 Balance 150 -475 Intake: Oral (ml) 300 IV Intake (ml) 1000 Output: Urine (ml) 1150 475 Urinal 1150 475 Other: Weight 67.1 kg Number of Voids Toilet 1 Urinal 1 Result Diagrams: 02/10/18 03:48 02/10/18 03:48 ICD10 Worksheet Patient Problems: Problems Problem Status Onset Hypoxemia Acute A-fib Acute Chronic obstructive pulmonary disease with acute exacerbation Acute CHF exacerbation Acute Pneumonia Acute Atrial fibrillation with RVR Acute
[2018-02-10] MEDS ORDERED: ALBUTEROL 3 ML DEYVIAL IH PRN (15:07)
--- NOTE | 2018-02-10 16:13 | ECHO ---
[email or web address] [address] [address] Main: [phone] Fax: Transthoracic Echocardiogram Name: MITCH COPE MR#: [id number] Study Date: 02/10/2018 Study Time: 09:38 AM Date of : 1930 Age: 87 year(s) Height: 172.7 cm (68 in.) Weight: 61.24 kg (135 lb.) BSA: 1.73 m2 Gender: Male Examination: Echo Indication: New onset of atrial fibrillation. Image Quality: Contrast: Requested by: Josias Alcala BP: 105 mmHg/80 mmHg Heart Rate: Rhythm: Atrial fibrillation Indication: New onset of atrial fibrillation. Procedure Staff Clinical Nurse Specialist: Edd Joy RDCS Reading Physician: Leodan Marrufo MD Requesting Provider: Conclusions: Normal size left ventricle. No LV hypertrophy. Normal global systolic LV function. No regional wall motion abnormality. Diastolic dysfunction is present. . Normal size right ventricle. Normal RV function. The left atrium is mildly dilated. There is a mobile echodensity consistent with left atrial myxoma measuring approximately 1.2cm x 1.0cm The probable myxoma is hypermobile with most likely a stalk. . The right atrium is normal in size. The mitral valve is normal in appearance. Mild mitral valve regurgitation is present. Minimal aortic cusp calcification is noted. Trivial to mild aortic valve regurgitation. The tricuspid valve is normal in appearance and function. The pulmonic valve is normal in appearance and function. The aorta is normal. No pericardial effusion. 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 Measurements: Chambers Valvular Assessment AV/MV Valvular Assessment TV/PV Normal Normal Normal Name Value Range Name Value Range Name Value Range IVSd (2D): 0.8 cm (0.6 cm-1.1 AV Vmax: 1.15 m/s (1 m/s-1.7 TR Vmax: 2.61 mm/s ( - ) cm) m/s) TR PGmax: 27 mmHg ( - ) LVDd (2D): 3.8 cm (4.2 cm-5.9 AV maxP mmHg ( - ) syst. PAP: 32 mmHg ( - ) cm) Patient: MITCH COPE Study Date: 02/10/2018 Page 1 of 2 09:38 AM LVDs (2D): 2.5 cm (2.1 cm-4 LVOT Vmax: 0.70 m/s (0.7 m/s-1.1 PV Vmax: 0.42 m/s (0.6 m/s-0.9 cm) m/s) m/s) LVPWd (2D): 0.9 cm (0.6 cm-1 AR (PHT): 442 ms ( - ) PV PGmax: 1 mmHg ( - ) cm) MV E Vmax: 0.70 m/s ( - ) Continued Measurements: Chambers Valvular Assessment AV/MV Valvular Assessment TV/PV Name Value Name Value Name Value LADs Lon.5 cm MV E' Septal: 0.05 m/s CVP (est.): 5 mmHg LA Area: 16.8 cm2 MV E/E' Septal: 13.10 LA Volume: 44 ml MV E/E' Lateral: 12.20 LA Volume Index: 25.4 ml/m2 AR Vmax: 2.13 cm/s Findings: Left Ventricle: Normal size left ventricle. No LV hypertrophy. Normal global systolic LV function. No regional wall motion abnormality. Diastolic dysfunction is present. . Right Ventricle: Normal size right ventricle. Normal RV function. Left Atrium: The left atrium is mildly dilated. There is a mobile echodensity consistent with left atrial myxoma measuring approximately 1.2cm x 1.0cm The probable myxoma is hypermobile with most likely a stalk. . Right Atrium: The right atrium is normal in size. Mitral Valve: The mitral valve is normal in appearance. Mild mitral valve regurgitation is present. Aortic Valve: Minimal aortic cusp calcification is noted. Trivial to mild aortic valve regurgitation. Tricuspid Valve: The tricuspid valve is normal in appearance and function. Pulmonic Valve: The pulmonic valve is normal in appearance and function. Aorta: The aorta is normal. Pericardium: No pericardial effusion. Exam Comments: (No Signature Object) Patient: MITCH COPE Study Date: 02/10/2018 Page 2 of 2 09:38 AM [id number]
[2018-02-10] MEDS ORDERED: DIGOXIN 500 MCG/2 ML AMP IVP ONE (16:44)
[2018-02-10] MEDS ORDERED: LEVALBUTEROL INHALER 200 PUFFS/15 GM MDI IH PRN (17:36)
[2018-02-10] MEDS: ACETAMINOPHEN 325 MG TAB PO PRN (17:56)
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
[2018-02-10] MEDS: FLUTICASONE HFA 110 MCG MDI IH SCH (21:43)
[2018-02-11] MEDS: ACETAMINOPHEN 325 MG TAB PO PRN ×2 (07:15→16:55)
[2018-02-11] MEDS: CHOLECALCIFEROL VIT D3 1,000 UNITS TAB PO SCH (08:29)
[2018-02-11] MEDS: CYANO/VITAMIN B12 1000 MCG TAB PO SCH (08:29)
[2018-02-11] MEDS: DABIGATRAN ETEXILATE MESYL 150 MG CAP PO SCH ×2 (08:29→21:00)
[2018-02-11] MEDS ORDERED: DIGOXIN 500 MCG/2 ML AMP IVP ONE (08:29)
[2018-02-11] MEDS: BENZONATATE 100 MG CAP PO SCH ×3 (08:29→21:00)
[2018-02-11] MEDS: predniSONE 20 MG TAB PO SCH (08:42)
[2018-02-11] MEDS: FLUTICASONE/SALMETER 100/50MCG DISKUS IH SCH (09:15)
[2018-02-11] MEDS: FLUTICASONE HFA 110 MCG MDI IH SCH ×2 (09:16→20:10)
[2018-02-11] MEDS: DILTIAZEM CD 180 MG CAP PO SCH ×2 (09:22→21:00)
[2018-02-11] MEDS: DIGOXIN 125 MCG TAB PO SCH (09:22)
[2018-02-11] MEDS: TIOTROPIUM INHALER 18 MCG/DOSE 5 DOSE/MDI IH SCH (09:29)
--- NOTE | 2018-02-11 12:04 | HOSPPROG ---
Hospitalist Progress Note Assessment/Plan: # a-fib with RVR - still tachy - given digoxin load IV today - dilt increased to 180 bid from 120 bid - pradaxa # atrial myxoma - has follow up scheduled with [facility] # COPD/asthma with acute viral bronchitis - pulm consulted; PFTs ordered - refusing prednisone - cont spiriva, xopenex - IgE ordered Subjective: still coughing significantly; Objective: Vital Signs Temp Pulse Resp BP Pulse Ox 36.9 C 105 H 20 116/74 94 02/11/18 11:33 02/11/18 11:33 02/11/18 11:33 02/11/18 11:33 02/11/18 11:33 Laboratory Results 02/10/18 03:48 02/10/18 03:48 02/10/18 02/11/18 02/12/18 05:59 05:59 05:59 Intake Total 1300 800 Output Total 1150 1125 400 Balance 150 -325 -400 PT 15.6 SEC (12.0-15.0) H 02/09/18 13:26 INR 1.22 (0.83-1.16) H 02/09/18 13:26 tele reviewed discussed with Samuel Lora CXr reviewed echo reviewed ICD10 Worksheet Patient Problems: Problems Problem Status Onset Hypoxemia Acute A-fib Acute Chronic obstructive pulmonary disease with acute exacerbation Acute CHF exacerbation Acute Pneumonia Acute Atrial fibrillation with RVR Acute
[2018-02-11] MEDS: LEVALBUTEROL 1.25 MG/3 ML DEYVIAL IH PRN ×2 (12:13→20:10)
--- NOTE | 2018-02-11 14:22 | PDCARPN ---
Cardiology Progress Note Chief Complaint: Patient reports breathing is easier today. Assessment/Plan: Assessment: 87-year-old male with significant past history of permanent atrial fibrillation since July of this year. 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 Noted to have poorly controlled AFib on admission. With rates varying between 130-150 BPM. Echocardiogram done 02/10/2018 showing normal LV size, no LVH, normal LV systolic function, no wall motion abnormalities, diastolic dysfunction, LA is mildly dilated, mobile echodense is see consistent with left atrial myxoma measuring up approximately 1.2 cm x 1.0 cm. Myxoma is hyper mobile with most likely a stock. RA is normal size, mild MR, trivial to mild AI, no pericardial effusion. 02/11/2018: Patient has had mild improvement with rate control with additional 0.125 mg IV did show loading dose yesterday. Digit level today is 0.7. TSH 6.050. Patient reporting no chest pain pressure or symptoms suggesting of ischemia. Continuous cardiac monitoring continues show atrial fibrillation with rates varying between 90 and 120 BPM. No malignant arrhythmias or pauses. Plan: 1. Atrial fibrillation with rapid ventricular response: Improvement with mild digital loading yesterday. Continues to have elevated rates. Will give another digoxin IV loading dose today. Also increased diltiazem to 180 mg p.o. Twice daily. Continue on Pradaxa for anticoagulation. 2. Atrial myxoma: 1st diagnosed in June of this year, is followed by [facility]. Patient informs me he has plans to undergo cardiac catheterization February 23 at [facility], and to see surgery soon afterwards for removal. Dr. Marrufo has raise concerns that due to the masses hyper mobility, that it may potentially at times interrupted mitral valve function, causing increased pulmonary pressure. 3. COPD/asthma with acute viral bronchitis: Patient has been seen by pulmonology, PFTs have been ordered. Med management per pulmonology and hospitalist services. 02/11/18 14:20 Subjective: He denies of any chest pressure, pain, palpitations, lightheadedness, orthopnea , near-syncope or syncopal events. Reviewed/Discussed With: hospitalist (Dr Walls), other (Dr Marrufo) Objective: Vital Signs (8 Hrs) Temp Pulse Resp BP Pulse Ox 02/11/18 12:13 93 14 95 02/11/18 11:33 36.9 C 105 H 20 116/74 94 02/11/18 09:22 133 H 118/76 02/11/18 09:18 124 H 17 95 02/11/18 07:45 36.8 C 112 H 16 118/75 95 02/11/18 07:39 36.8 C Intake/Output (24 Hrs) 02/10/18 02/11/18 02/12/18 05:59 05:59 05:59 Intake Total 1300 800 Output Total 1150 1125 400 Balance 150 -325 -400 Intake: Oral (ml) 300 800 IV Intake (ml) 1000 Output: Urine (ml) 1150 1125 400 Toilet 200 300 Urinal 1150 925 100 Other: Weight 67.1 kg Number of Voids Toilet 1 Urinal 2 Result Diagrams: 02/10/18 03:48 02/10/18 03:48 Cardiac Labs: Cardiac Lab Results (72 Hrs) 02/10/18 02/10/18 21:15 15:57 Troponin I < 0.012 < 0.012 - Physical Exam Constitutional: no apparent distress Ears, Nose, Mouth, Throat: moist mucous membranes Cardiovascular: no murmurs, irregularly irregular, No jugular vein distention Peripheral Pulses: 1+: dorsalis-pedis (R), dorsalis-pedis (L), 2+: carotid (R), carotid (L) Respiratory: other (Expiratory wheezes, diminished in bases, no accessary muscle use. No intercostal muscle retraction noted.) Gastrointestinal: normoactive bowel sounds, no tenderness, no masses Skin: no rashes, warm, no edema Neurologic: AAOx3 Psychiatric: cooperative, interactive ICD10 Worksheet Patient Problems: Problems Problem Status Onset Atrial fibrillation with RVR Acute Pneumonia Acute A-fib Acute CHF exacerbation Acute Chronic obstructive pulmonary disease with acute exacerbation Acute Hypoxemia Acute
--- NOTE | 2018-02-11 14:22 | ASMTCMCOM ---
CM Note CM Note Notes: 02/11/2018 Case Management Note Discussed pt during rounds this morning. There are no therapies ordered at this time. Pt is ambulating without difficulty in room. Case Management d/c poc: anticipating independent with follow up as directed. Case Management available if needs change. Date Signed: 02/11/2018 02:21 PM Electronically Signed By:Yessica oMrocho RN
--- NOTE | 2018-02-11 16:29 | SOAPPROG ---
SOAP Progress Note Assessment/Plan: Assessment: Asthma, obstructive lung disease. This is associated with cough and shortness of breath, with the presence of increased symptoms following a URI about 6 weeks ago. More recent rhino virus/enterovirus may be playing a role at this point in time. Bronchodilator therapy does appear to be of significant benefit. I have gone to Xopenex secondary to his rapid atrial fibrillation. I have stopped Advair long-acting bronchodilators in favor of inhaled steroids in the form of Flovent at this time. Spiriva is also being given. Further evaluation of his lung disease is definitely indicated by Pulmonary. He was to have been seen by [facility] yesterday but obviously missed this appointment. I have recommended that they call as soon as possible and reschedule. Atrial fibrillation. Associated with rapid ventricular response. Add beta agonist may have been contributing. Asthma preparations changed as outlined above. Plan: Continue present bronchopulmonary therapies and steroids. I will see the patient again tomorrow in the a.m.. Further evaluation from pulmonary standpoint will likely be with [facility]. Subjective: Doing okay. He feels his breathing is better. He has less shortness of breath , less cough today. Objective: Vital Signs Temp Pulse Resp BP Pulse Ox 37.1 C 105 H 15 106/62 95 02/11/18 15:18 02/11/18 15:18 02/11/18 15:18 02/11/18 15:18 02/11/18 15:18 Laboratory Results 02/10/18 03:48 02/10/18 03:48 02/10/18 02/11/18 02/12/18 05:59 05:59 05:59 Intake Total 1300 800 Output Total 1150 1125 400 Balance 150 -325 -400 PT 15.6 SEC (12.0-15.0) H 02/09/18 13:26 INR 1.22 (0.83-1.16) H 02/09/18 13:26 Laboratory Tests 02/11/18 02/11/18 03:53 03:53 TSH 6.050 H IgE Pending Spirometry: The patient had difficulty doing the spirometric maneuvers secondary to cough, especially pre bronchodilator. The FEV1 was 0.61 L, 26% of predicted at baseline with a forced vital capacity of 0.64 L, 19% of predicted. Because of his coughing and difficulty attic these values are much lower than his actual pulmonary function capabilities. Following bronchodilator the FEV1 improved 1.44 L, 61% of predicted, 136% improvement. Vital capacity improved to 2.11 L, 62% of predicted, a 230% improvement. Impression: Obstructive disease does exist, likely not as severe as represented by the baseline spirometric results. Sig improvement does appear to be present after bronchodilator. Physical Exam - Physical Exam General Appearance: alert, no apparent distress, thin (Thin but fit appearing. No cough or breathing difficulties during my examination today.) EENT: PERRL/EOMI, other (On room air) Neck: normal inspection (No JVD) Respiratory: lungs clear (Anteriorly), decreased breath sounds (At bases), wheezing (Few wheezes present), prolonged expiration (With volitional complete exhalation) Cardiac/Chest: irregularly irregular (Rate generally less comma 90-105 range) Abdomen: normal bowel sounds, non-tender, soft Skin: normal color, warm/dry Extremities: No pedal edema Neuro/Psych: no motor/sensory deficits, No cognition abnormalities ICD10 Worksheet Patient Problems: Problems Problem Status Onset Hypoxemia Acute A-fib Acute Chronic obstructive pulmonary disease with acute exacerbation Acute CHF exacerbation Acute Pneumonia Acute Atrial fibrillation with RVR Acute
[2018-02-12] MEDS ORDERED: DILTIAZEM CD 180 MG CAP PO SCH
[2018-02-12] MEDS ORDERED: DIGOXIN 125 MCG TAB PO SCH
[2018-02-12 04:26] LABS: PLATELET COUNT 118 10^3/uL (150-400)
[2018-02-12] MEDS: BENZONATATE 100 MG CAP PO SCH (07:53)
[2018-02-12] MEDS: DILTIAZEM CD 180 MG CAP PO SCH (07:54)
[2018-02-12] MEDS: CHOLECALCIFEROL VIT D3 1,000 UNITS TAB PO SCH (07:54)
[2018-02-12] MEDS: CYANO/VITAMIN B12 1000 MCG TAB PO SCH (07:54)
[2018-02-12] MEDS: DABIGATRAN ETEXILATE MESYL 150 MG CAP PO SCH (07:54)
[2018-02-12] MEDS: FLUTICASONE HFA 110 MCG MDI IH SCH (08:14)
[2018-02-12] MEDS: TIOTROPIUM INHALER 18 MCG/DOSE 5 DOSE/MDI IH SCH (08:15)
[2018-02-12] MEDS: ACETAMINOPHEN 325 MG TAB PO PRN (09:31)
[2018-02-12] MEDS: DIGOXIN 125 MCG TAB PO SCH (09:31)
--- NOTE | 2018-02-12 09:34 | PDCARPN ---
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 Admitted with cough/fever and AFib with rapid ventricular rates. Echocardiogram personally reviewed from 02/10/2018 showing normal LV size, no LVH, normal LV systolic function, no wall motion abnormalities, diastolic dysfunction, LA is mildly dilated, mobile echodensity consistent with left atrial myxoma measuring up approximately 1.2 cm x 1.0 cm. Myxoma is hyper mobile with a stalk. RA is normal size, mild MR, trivial to mild AI, no pericardial effusion. Plan: #. Atrial fibrillation with rapid ventricular response: Improved rates on telemetry on Digoxin 125 mcg Qday and Dilt 180 mg BID Continue on Pradaxa for [id number] of at least 2 #. Atrial myxoma: 1st diagnosed in June of this year, followed by [facility]. has plans to undergo cardiac catheterization February 23 with eye towards excision #. COPD/asthma with acute viral bronchitis: Med management per pulmonology and hospitalist services. #. Fever: related to rhinovirus continue IM management Plan: - OK to d/c from cardiology perspective from AF perspective. 02/12/18 09:27 Subjective: Patient has improved rate control. Dig level yesterday is 0.7. TSH 6.050. Patient reporting no chest pain pressure or symptoms suggesting of ischemia. Continuous cardiac monitoring continues show atrial fibrillation with rates controlled in the 90s. Notes F and productive cough. Reviewed/Discussed With: hospitalist (Dr. Walls) Objective: Vital Signs (8 Hrs) Temp Pulse Resp BP Pulse Ox 02/12/18 09:04 98.1 F 87 18 110/86 H 94 02/12/18 08:15 99 22 H 95 02/12/18 04:49 98.3 F 83 17 109/77 97 Intake/Output (24 Hrs) 02/11/18 02/12/18 02/13/18 05:59 05:59 05:59 Intake Total 800 1050 Output Total 1125 850 Balance -325 200 Intake: Oral (ml) 800 1050 Output: Urine (ml) 1125 850 Toilet 200 750 Urinal 925 100 Other: Number of Voids Toilet 1 Urinal 2 Result Diagrams: 02/12/18 04:12 02/10/18 03:48 Cardiac Labs: Cardiac Lab Results (72 Hrs) 02/10/18 02/10/18 21:15 15:57 Troponin I < 0.012 < 0.012 EKG: AF rVR 136, 1 PVC Telemetry: reviewed - Physical Exam Constitutional: no apparent distress Eyes: anicteric sclera Ears, Nose, Mouth, Throat: moist mucous membranes Cardiovascular: irregularly irregular, No systolic murmur Respiratory: clear to auscultate bilat, no crackles Gastrointestinal: normoactive bowel sounds, no tenderness Skin: no rashes, no abrasions Neurologic: AAOx3 Psychiatric: cooperative, interactive ICD10 Worksheet Patient Problems: Problems Problem Status Onset Hypoxemia Acute A-fib Acute Chronic obstructive pulmonary disease with acute exacerbation Acute CHF exacerbation Acute Pneumonia Acute Atrial fibrillation with RVR Acute
[2018-02-12 11:35] VITALS: BP 100/63
--- NOTE | 2018-02-12 12:57 | GDS ---
LABS PENDING AT THE TIME OF DISCHARGE: IgE DIAGNOSES: 1. Atrial fibrillation with rapid ventricular response. 2. Atrial myxoma number. 3. Chronic obstructive pulmonary disease/asthma with acute viral bronchitis. HOSPITAL COURSE: This is an 87-year-old man who was admitted with worsening shortness of breath. He complained of respiratory symptoms which have been persistent for about 6 weeks. Notably, he was re cently diagnosed with an atrial myxoma. He has outpatient plans to have a cardiac catheterization an d then a subsequent resection of the myxoma. He had been in atrial fibrillation previously, although his heart rate was very hard to control. He was seen by Cardiology. His diltiazem was increased fr om 120 twice a day to 180 twice a day. Digoxin was added. He was loaded with this. His level on , was 0.7. On the day of discharge, his rates are much better in 80s to 90s. He will be discharg ed on rate control, including digoxin 125 mcg daily, as well as diltiazem 180 mg b.i.d. Recommend th at he follow up with his special event assistant within 1 month to check a digoxin level. As above, has outpatient plans to address his atrial myxoma. He is getting a catheterization in february and then likely subsequent resection. He was seen by Pulmonology as well. Recommend a tiotropium inhaler. He is also on a long-acting bet a agonist, as well as inhaled steroids which I will continue for now. Could consider stopping this i f his heart rate continues to be difficult to control. He is on Pradaxa as well for atrial fibrillation. BILLING: I spent more than 30 minutes on the day of discharge coordinating care. FOLLOWUP: Dr. Paredes, his special event assistant for followup with his new rate control medications including monitoring of digoxin and cardiac catheterization, which is planned in early February. Copy requested to: Dr. Dianna Paredes /[id number]/MODL
--- NOTE | 2018-02-12 13:09 | SOAPPROG ---
SOAP Progress Note Assessment/Plan: Assessment: Asthma, obstructive lung disease. This is associated with cough and shortness of breath, with the presence of increased symptoms following a URI about 6 weeks ago. More recent rhino virus/enterovirus may still be playing a role at this point in time. Bronchodilator therapy does appear to be of significant benefit. I have gone to Xopenex secondary to his rapid atrial fibrillation. I have stopped Advair/long-acting bronchodilators in favor of inhaled steroids in the form of Flovent at this time. Spiriva is also being given. Further evaluation of his lung disease is definitely indicated by Pulmonary. He was to have been seen by [facility] 02/10 but obviously missed this appointment. I have recommended that he call as soon as possible and reschedule. Atrial fibrillation. Associated with rapid ventricular response. Beta agonist therapy may have been contributing. Asthma preparations changed as outlined above. Plan: Continue present bronchopulmonary therapies and steroids. Okay to discharge home from my standpoint on inhaled Flovent and as needed Xopenex along with Spiriva. Would recommend a slow prednisone taper. Further evaluation from pulmonary standpoint will likely be with [facility]. Subjective: Feels better this morning, less cough, less shortness of breath but not doing much. Still some a both. Says he feels febrile with a 1 degree temperature rise to 98 degrees, high for him. Objective: Vital Signs Temp Pulse Resp BP Pulse Ox 36.3 C 80 16 100/63 94 02/12/18 11:33 02/12/18 11:33 02/12/18 11:33 02/12/18 11:33 02/12/18 11:33 Laboratory Results 02/12/18 04:12 02/10/18 03:48 02/11/18 02/12/18 02/13/18 05:59 05:59 05:59 Intake Total 800 1050 200 Output Total 1125 850 300 Balance -325 200 -100 PT 15.6 SEC (12.0-15.0) H 02/09/18 13:26 INR 1.22 (0.83-1.16) H 02/09/18 13:26 Physical Exam - Physical Exam General Appearance: alert, no apparent distress EENT: other (On room air) Neck: normal inspection Respiratory: decreased breath sounds, wheezing (Few end expiratory wheezes), No rhonchi (No rhonchi. Mild central congestion with cough, clears fairly well after the 1st cough) Cardiac/Chest: irregularly irregular (Slower heart rate: Approximately 85) Abdomen: normal bowel sounds, non-tender, soft Skin: normal color, warm/dry Extremities: No pedal edema Neuro/Psych: no motor/sensory deficits, No cognition abnormalities ICD10 Worksheet Patient Problems: Problems Problem Status Onset Hypoxemia Acute A-fib Acute Chronic obstructive pulmonary disease with acute exacerbation Acute CHF exacerbation Acute Pneumonia Acute Atrial fibrillation with RVR Acute
--- NOTE | 2018-02-12 13:50 | ASDISCHSUM ---
Discharge Information Plan Status:Home with No Needs Medically Cleared to Leave:02/12/2018 Discharge Date:02/12/2018 CM D/C Disposition:Home, Routine, Self-Care ADT D/C Disposition:Home, Routine, Self-Care Projected Discharge Date:02/12/2018 Transportation at D/C:Family Discharge Delay Reason: Follow-Up Date:02/12/2018 Discharge Slot: Final Diagnosis: Placement Information Patient Contact Information Contact Name:IRENE Relationship:Daughter Address:[address] [place] Work Phone: [facility] Phone: State/Zip Code:[place] [address] Email: Financial Information Financial Class:Medicare Advantage Plans Primary Plan Desc:[employer] Primary Plan Number:[id number] Secondary Plan Desc: Secondary Plan Number: Assessment Information LACE LACE Length of stay for Answers: 2 days current admission Acuity / Level of Answers: Yes Care: Did the patient have an inpatient admission? Comorbidities - select Answers: Chronic pulmonary disease all that apply Opioid dependence / Chronic pain Other Notes: AFib; Asthma # of Emergency department Answers: 3-4 visits in the last 6 months Score: 15 Date Signed: 02/12/2018 01:48 PM Electronically Signed By:Yessica Morocho RN [facility] Initial CM Assessment Living Arrangements What is your living Answers: Alone arrangement? Who do you live with? Type Of Residence What kind of residence do Answers: House you live in? Discharge Plan Comments Coordination Status Comments Notes: Pts case discussed in tx rounds. Pt is a 87 y/o man admitted for afib w/ rvr and pneumonia. Pt is on droplet precaution. SPL has been ordered. Pt is being followed by transitional care. Cardiology and pulmonology has been consulted. Pt is refusing to use o2 at this time. Needs are TBD. CM to follow. Plan: TBD Date Signed: 02/10/2018 12:07 PM Electronically Signed By:DEAN Jones [facility] CM Progress Note CM Note CM Note Notes: 02/11/2018 Case Management Note Discussed pt during rounds this morning. There are no therapies ordered at this time. Pt is ambulating without difficulty in room. Case Management d/c poc: anticipating independent with follow up as directed. Case Management available if needs change. Date Signed: 02/11/2018 02:21 PM Electronically Signed By:Yessica Morocho RN Case Management Discharge Plan Note Case Management Discharge Discharge Order Complete? Answers: Yes Patient to Obtain Answers: Independently Medications Transportation Arranged Answers: Family/Friends Discharge Comments Notes: Pt to discharge independent with follow up as directed. Date Signed: 02/12/2018 01:49 PM Electronically Signed By:Yessica Morocho RN Intervention Information Intervention Type:*IM-Signed Date of Service:02/11/2018 02:45 PM Patient Type:Inpatient Staff Member:Nicky Schwartz Hours: Discipline: Severity: Comment:
== END 2018-02-12 14:35 | disposition home or self-care (01) | DRG 202 ==
LOC: F2W 18:10
PROVIDERS: ADMIT Internal Medicine; ATTEND Internal Medicine
DX: J20.6 Acute bronchitis due to rhinovirus (principal); J44.1 Chronic obstructive pulmonary disease with (acute) exacerbation; J44.0 Chronic obstructive pulmonary disease with (acute) lower respiratory infection; B97.89 Other viral agents as the cause of diseases classified elsewhere; I48.2 Chronic atrial fibrillation; J45.909 Unspecified asthma, uncomplicated; D15.1 Benign neoplasm of heart; Z87.891 Personal history of nicotine dependence
CPT/HCPCS: 92610-GN; 96374; J0456; J0696; J1160; J2930; J7512; J7613